=== PATIENT | male | born 1970 | race Caucasian/White ===

== ENCOUNTER → 2018-04-09 | Outpatient (CLI) | payer BC ==
[2018-04-09 13:04] LABS: Basophils # (A) 0.1 k/uL (0-0.2); Basophils % (A) 1 %; Eosinophils # (A) 0.3 k/uL (0-0.7); Eosinophils % (A) 3 %; HCT 47.1 % (39.0-53.0); HGB 15.4 gm/dL (13.0-17.5); Lymphocytes # (A) 2.5 k/uL (1.0-4.8); Lymphocytes % (A) 29 %; MCH 31.4 pg (25.0-35.0); MCHC 32.8 g/dL (31.0-37.0); Mean Platelet Volume 7.8; Monocytes # (A) 0.7 k/uL (0-1.0); Monocytes % (A) 8 %; Neutrophils % (A) 57 %; Platelet Count 346 k/uL (150-450); RBC 4.91 m/uL (4.30-5.90); RDW 13.4 % (11.5-15.5); WBC 8.8 k/uL (3.8-10.6)
== END | disposition home or self-care (01) ==
LOC: LABPAT 11:47
PROVIDERS: ATTEND Orthopaedic Surgery
DX: Z01.812 Encounter for preprocedural laboratory examination (principal); M23.92 Unspecified internal derangement of left knee
CPT/HCPCS: 36415; 82947; 85025

== ENCOUNTER → 2018-04-17 | Day surgery (SDC) | payer BC ==
[2018-04-14 12:12] VITALS: BMI 39.0
--- NOTE | 2018-04-16 20:04 | HP ---
HISTORY AND PHYSICAL DATE OF SURGERY: 04/17/2018 Yogi Ritter is a 47-year-old patient seen with progressive left knee pain. Treatment options were discussed with him. He elected to proceed with arthroscopy. Consent regarding the procedure was obtained. PAST MEDICAL HISTORY: Hypothyroidism, hypertension. PAST SURGICAL HISTORY: Noncontributory. MEDICATIONS: Levothyroxine, antihypertensive. ALLERGIES: PENICILLIN, ASPIRIN. SOCIAL HISTORY: Patient denies current tobacco use. PHYSICAL EVALUATION OF LEFT KNEE: Range of motion 0 to 130 degrees. He has a mild effusion. Tenderness along the medial joint line. Positive medial Annalee's. Ligaments stable. Patellar medial crepitus with range of motion. Hip rotation without pain. Distal neurovascular exam intact. LEFT KNEE RADIOGRAPHS: Left knee radiographs revealed mild medial, lateral and moderate patellofemoral compartment osteoarthritis. Left knee MRI revealed chondromalacia. IMPRESSION: Internal derangement of the left knee with meniscal tear versus osteochondral tear. PLAN: Left knee arthroscopy with partial meniscectomy versus chondroplasty and debridement. MMODL / IJN: [id number] /
[~2018-04-17] MED LIST: BUPIVACAIN-EPI 0.25%-1:200,000 30 ML VIAL SQ ONE; CLINDAMYCIN 900 MG in DEXTROSE 5% IN WATER 50 ML IVPB ONE; DEXAMETHASONE SOD PHOSPHATE 10 MG/ML 1 ML VIAL IV ONE; LACTATED RINGERS 1,000 ML IV ONE; LACTATED RINGERS 1,000 ML IV SCH; LIDOCAINE 1% 20 ML VIAL (10MG/ML) FOR IV START INTRADERMA ONE; MIDAZOLAM 2 MG/2 ML VIAL IV PRN; MIDAZOLAM 2 MG/2 ML VIAL ONE; ONDANSETRON 4 MG/2 ML VIAL IVP ONE; PROPOFOL 10 MG/ML 20 ML VIAL IV ONE; Pre Op ABX Message 1 EACH MISC MISCELLANE ONE; SCOPOLAMINE 1.5MG/72HR PATCH TRANSDERM ONE; fentaNYL (PF) 50 MCG/ML 2 ML AMP IV PRN; fentaNYL (PF) 50 MCG/ML 2 ML AMP ONE
[2018-04-17 09:34] VITALS: TEMP 97.3
--- NOTE | 2018-04-17 09:42 | P.OP ---
Date of Procedure: 04/17/18 Preoperative Diagnosis: Internal derangement left knee Postoperative Diagnosis: 1. Tear medial and lateral meniscus left knee 2. Grade 2/3 chondromalacia medial femoral condyle left knee 3. Reactive synovitis medial and suprapatellar compartments left knee Procedure(s) Performed: 1. Arthroscopic partial medial and lateral meniscectomy left knee 2. Arthroscopic chondroplasty medial femoral condyle left knee 3. Arthroscopic partial synovectomy medial and suprapatellar compartments left knee Anesthesia: local, spinal Surgeon: River Lopez Estimated Blood Loss (ml): 5 Pathology: none sent Condition: stable Disposition: PACU Indications for Procedure: 47-year-old patient seen with progressive left knee pain. After having treatment options discussed he elected to proceed with arthroscopy. Operative Findings: See description of procedure Description of Procedure: Patient was taken to the operative suite. Patient underwent a spinal anesthetic by the department of anesthesia. Patient was given preoperative antibiotics. The left lower extremity was placed in a well-padded arthroscopic leg del angel. The left leg was prepped and draped in the normal sterile orthopedic fashion. A lateral parapatellar and suprapatellar incision was made. Trochars were inserted. Arthroscopy was initiated. Suprapatellar pouch revealed diffuse thick reactive synovitis. The patellofemoral joint appeared appeared to articulate congruently. There was grade 1 chondromalacia. The scope was guided into the medial gutter. No loose bodies or plica were identified. The scope was then guided into the medial compartment. A medial parapatellar incision was made. Trocar inserted followed by probe. Was a radial tear posterior horn medial meniscus. There were grade 2/3 chondromalacia changes medial femoral condyle with small osteochondral tears present. There was thick reactive synovitis anteriorly. I performed a partial medial meniscectomy down to stable tissue. I performed a chondroplasty of the medial femoral condyle down to stable tissue. I performed a partial synovectomy decompressing that synovitis anteriorly. The residual meniscus was stable. The residual osteochondral surface was stable. There was good decompression of the synovitis. Scope and probe were then guided into the intercondylar notch. Cruciates were identified, probed and found to be stable. The scope and probe were then guided into lateral compartment. There was a small radial tear involving the anterior horn lateral meniscus. There was no reactive synovitis present. The osteochondral surfaces were stable. I performed a partial lateral meniscectomy down to stable tissue. The residual meniscus was stable. The scope was in guided back into the suprapatellar compartment. I introduced a motorized shaver into the suprapatellar compartment. I performed a partial synovectomy decompressing the reactive synovitis. There was good decompression of the synovitis. I took one more look on the entire knee, no residual debris. Instruments were now removed from the joint. The joint was infiltrated with .25% Marcaine. Steri-Strips were applied to the portal sites. Sterile dressings were applied. The patient was placed into a MATIAS hose. No tourniquet was utilized. The patient was awakened, transferred to a bed and taken to recovery stable satisfactory condition.
[2018-04-17 12:19] VITALS: BP 166/96; PULSE 93; RESP 20
== END | disposition home or self-care (01) ==
LOC: OR 06:55
PROVIDERS: ATTEND Orthopaedic Surgery
DX: S83.242A Other tear of medial meniscus, current injury, left knee, initial encounter (principal); S83.282A Other tear of lateral meniscus, current injury, left knee, initial encounter; X58.XXXA Exposure to other specified factors, initial encounter; M94.262 Chondromalacia, left knee; M65.862 Other synovitis and tenosynovitis, left lower leg; E03.9 Hypothyroidism, unspecified; I10 Essential (primary) hypertension; Z79.890 Hormone replacement therapy; Z79.899 Other long term (current) drug therapy; Z88.6 Allergy status to analgesic agent; Z88.0 Allergy status to penicillin
CPT/HCPCS: 29880; J2250; J1100; J2405; J3010; J2704

== ENCOUNTER → 2022-07-20 | Outpatient (CLI) | payer BC ==
[2022-07-20 23:07] LABS: Basophils # (A) 0.14 X 10*3/uL (0.00-0.10); Basophils % (A) 1.5 %; Eosinophils # (A) 0.24 X 10*3/uL (0.04-0.35); Eosinophils % (A) 2.6 %; HCT 39.4 % (39.6-50.0); HGB 11.7 g/dL (13.0-17.0); Immature Grans, Automated 0.3 %; Lymphocytes # (A) 1.96 X 10*3/uL (0.90-5.00); Lymphocytes % (A) 21.1 %; MCH 25.3 pg (27.0-32.0); MCHC 29.7 g/dL (32.0-37.0); MCV 85.1 fL (80.0-97.0); Mean Platelet Volume 10.6 fL (9.5-12.2); Monocytes # (A) 1.18 X 10*3/uL (0.20-1.00); Monocytes % (A) 12.7 %; NRBC Per 100 WBC 0 /100 WBCS (0.0-0.0); Neutrophils # (A) 5.75 X 10*3/uL (1.80-7.70); Neutrophils % (A) 61.8 %; Platelet Count 343 X 10*3/uL (140-440); RBC 4.63 X 10*6/uL (4.40-5.60); RDW 17.2 % (11.5-14.5)
[2022-07-21 02:57] LABS: Anion Gap 14.2 mmol/L (10.00-18.00); Carbon Dioxide 24.8 mmol/L (20.0-27.5); Potassium 4.4 mmol/L (3.5-5.5)
== END | disposition home or self-care (01) ==
LOC: LABPAT 15:41
PROVIDERS: ATTEND Orthopaedic Surgery Hand Surgery
DX: Z01.818 Encounter for other preprocedural examination (principal); G56.22 Lesion of ulnar nerve, left upper limb
CPT/HCPCS: 80051; 85025; 93005

== ENCOUNTER 2022-08-08 07:12 | Day surgery (SDC) | payer BC ==
[2022-08-03 09:11] VITALS: BMI 38.4
--- NOTE | 2022-08-07 08:56 | P.HPOR ---
History of Present Illness H&P Date: 08/07/22 Chief Complaint: Left cubital tunnel syndrome Subjective: This is a 52 year old male that presents today for initial evaluation regarding a several year history of worsening elbow pain and left small and ring finger paresthesias and hand weakness. He denies any injury or inciting event. He has pain also located over the lateral aspect of the elbow and pain with resisted wrist extension. He has tried therapy, numerous elbow braces and wrist braces with little relief. He has a history of right open cubital tunnel release several years ago but an outside orthopedic surgeon which improved his symptoms he states by approximately 70%. Physical Examination: LUE: AIN/PIN/Radial/Ulnar/Median motor intact. Radial/Ulnar/Median SILT. 2+/4 Radial/Ulnar pulses palpated. 5/5 APB, 5/5 FDI. Negative Finkelsteins, negative CMC grind, negative Durkan's compression. TTP over ERCB insertion with resisted wrist extension. Small and ring finger paresthesias reproduced after 15 seconds of elbow flexion. Imaging: X-Rays of the left elbow from 05/29/22 demonstrate no acute abnormality. Impression: 1.) Left cubital tunnel syndrome 2.) Left lateral epicondylitis Plan: Diagnosis and treatment options were discussed with the patient. He has failed conservative treatment for his left cubital tunnel symptoms and would like to proceed with left open cubital tunnel release. Risks and benefits of surgery including bleeding, infection, damage to surrounding tissue, need for further surgery, residual numbness were discussed and the patient wished to go forward with surgery. I recommend elbow bracing and possible steroid injection for his lateral epicondylitis after he is healed from cubital tunnel release if his symptoms persist. The patient was agreeable with this plan. Follow up: 2 weeks post op -Bebo Quach DO Orthopedic Hand/Upper Extremity Surgeon Past Medical History Past Medical History: Diabetes Mellitus, Hypertension, Sleep Apnea/CPAP/BIPAP, Thyroid Disorder Additional Past Medical History / Comment(s): c-pap machine., lichen planus auto immune disorder-( states rash on arms & back). History of Any Multi-Drug Resistant Organisms: None Reported Past Surgical History: Orthopedic Surgery Additional Past Surgical History / Comment(s): left knee arthroscopy, sinus surgery, left shoulder surgery x2 and right shoulder x1., ganglion cyst wrist , rickie heel slide surgery and hardware removed., right elbow cubital release. Additional Past Anesthesia/Blood Transfusion Reaction / Comment(s): sinus surgery woke up when tube was removed and lungs collapsed and was hospitalized for 1 1/2 weeks . Past Psychological History: Anxiety, Depression Smoking Status: Never smoker Past Alcohol Use History: None Reported Past Drug Use History: None Reported - Past Family History Father Family Medical History: Cancer Additional Family Medical History / Comment(s): pts father and his fathers brothers x3 had prostate cancer. Sister(s) Additional Family Medical History / Comment(s): brain tumor Medications and Allergies Home Medications Medication Instructions Recorded Confirmed Type Cholecalciferol [Vitamin D3 (25 25 mcg PO DAILY 08/03/22 08/03/22 History Mcg = 1000 Iu)] Ferrous Sulfate [Iron] 325 mg PO DAILY 08/03/22 08/03/22 History Folic Acid 1 mg PO DAILY 08/03/22 08/03/22 History Levothyroxine Sodium 150 mcg PO DAILY 08/03/22 08/03/22 History Losartan Potassium [Cozaar] 25 mg PO BID 08/03/22 08/03/22 History Vitamin B Injection 1 dose SQ QMONTHLY 08/03/22 History buPROPion HCL [buPROPion HCL XL] 300 mg PO DAILY 08/03/22 08/03/22 History metFORMIN HCL [Glucophage] 500 mg PO BID 08/03/22 08/03/22 History metHOTREXate sodium [Methotrexate] 2.5 mg PO WEEKLY 08/03/22 08/03/22 History Allergies Allergy/AdvReac Type Severity Reaction Status Date / Time NSAIDS (Non-Steroidal Allergy Severe Anaphylaxis Verified 08/03/22 08:42 Anti-Inflamma aspirin Allergy Anaphylaxis Verified 08/03/22 08:37 Penicillins Allergy Anaphylaxis Verified 08/03/22 08:37 Milk Containing Products AdvReac Diarrhea Verified 08/03/22 08:37 [Dairy] peanut AdvReac HEADACHE Verified 08/03/22 08:37 pineapple AdvReac HEADACHE Verified 08/03/22 08:37 wheat AdvReac HEADACHE Verified 08/03/22 08:37 Physical Examination Osteopathic Statement: *. No significant issues noted on an osteopathic structural exam other than those noted in the History and Physical/Consult.
[~2022-08-08 07:12] MED LIST changes: -BUPIVACAIN-EPI 0.25%-1:200,000 30 ML VIAL SQ ONE; -CLINDAMYCIN 900 MG in DEXTROSE 5% IN WATER 50 ML IVPB ONE; -DEXAMETHASONE SOD PHOSPHATE 10 MG/ML 1 ML VIAL IV ONE; +DEXAMETHASONE SOD PHOSPHATE 4 MG/ML 1 ML VIAL IV ONE; +HYDROmorphone 0.5 MG/0.5 ML SYRINGE IVP PRN; -LACTATED RINGERS 1,000 ML IV ONE; +LIDOCAINE 1% (10MG/ML) FOR IV START INTRADERMA PRN; -LIDOCAINE 1% 20 ML VIAL (10MG/ML) FOR IV START INTRADERMA ONE; -MIDAZOLAM 2 MG/2 ML VIAL IV PRN; -MIDAZOLAM 2 MG/2 ML VIAL ONE; -PROPOFOL 10 MG/ML 20 ML VIAL IV ONE; -SCOPOLAMINE 1.5MG/72HR PATCH TRANSDERM ONE; -fentaNYL (PF) 50 MCG/ML 2 ML AMP IV PRN; -fentaNYL (PF) 50 MCG/ML 2 ML AMP ONE
[2022-08-08 08:18] LABS: Glucose,Whole Blood 106 mg/dL (70-110)
[2022-08-08] MEDS ORDERED: fentaNYL (PF) 50 MCG/ML 2 ML AMP ONE (08:39)
[2022-08-08] MEDS ORDERED: MIDAZOLAM 2 MG/2 ML VIAL ONE (08:39)
[2022-08-08] MEDS ORDERED: PROPOFOL 10 MG/ML 20 ML VIAL IV ONE (08:39)
[2022-08-08] MEDS ORDERED: LIDOCAINE 4% LTA KIT (4 ML) TOPICAL ONE (08:39)
[2022-08-08] MEDS ORDERED: LIDOCAINE 2% INJ 20 MG/ML (2 ML VIAL) ONE (08:39)
[2022-08-08] MEDS ORDERED: SUCCINYLCHOLINE CHLORIDE 200 MG/10 ML VIAL IV ONE (08:39)
[2022-08-08] MEDS ORDERED: BUPIVACAINE (PF) 0.5% 30 ML VIAL SQ ONE ×2 (08:55)
[2022-08-08] MEDS ORDERED: LACTATED RINGERS 1,000 ML IV ONE (09:55)
[2022-08-08 10:19] VITALS: TEMP 98.3
[2022-08-08 10:34] VITALS: PULSE 98
[2022-08-08] MEDS ORDERED: HYDROcodone/APAP 7.5-325MG 1 EACH TAB ONE (10:37)
[2022-08-08] MEDS ORDERED: HYDROcodone/APAP 7.5-325MG 1 EACH TAB PO ONE (10:40)
[2022-08-08 11:14] VITALS: BP 138/78; RESP 158
--- NOTE | 2022-08-08 16:43 | P.OP ---
Date of Procedure: 08/08/22 Preoperative Diagnosis: Left cubital tunnel syndrome Postoperative Diagnosis: Left cubital tunnel syndrome Procedure(s) Performed: Left open cubital tunnel release with anterior subcutaneous transposition Anesthesia: GERARD Surgeon: Bebo Quach Principal Clerk Typist #1: Ronald Lindquist Estimated Blood Loss (ml): 5 Pathology: none sent Condition: stable Disposition: PACU Description of Procedure: This is a 52 year old male who presented today for a left open cubital tunnel release after having failed conservative treatment. Risks and benefits of surgery were discussed with the patient including bleeding, damage to surrounding tissue, infection, need for further surgery as well as risks of anesthesia including pulmonary embolism and even and the patient wished to proceed with surgical intervention. The patient was seen in the pre-operative area by myself. Consent and H&P were completed and updated. The correct extremity was marked in the pre-operative area by myself and all other questions were answered. Operative Narrative: The patient was brought to the operating room by the department of anesthesia. They remained on the portable stretcher and a rolling hand table was brought to the side of the operative extremity. Pre-operative time out was performed indicating the correct patient, procedure and laterality. All in the room agreed. Pre-operative antibiotics were given prior to skin incision. The patient was then drifted off to sleep by the department of anesthesia. A nonsterile tourniquet was then applied to the operative extremity and the left upper extremity was then prepped and draped in normal sterile fashion. The operative extremity was the exsanguinated with an esmarch bandage and the tourniquet was inflated to 250mmHg. Attention was brought to the medial elbow. 15 blade scalpel was used to incise skin in between the medial epicondyle and olecranon in a curvlinear and longitudinal fashion. Blunt dissection was taken down through subcutaneous tissue with tenotomy scissors and branches of the MABCN were identified and protected. Dissection was carried proximally and the ulnar nerve was identified proximally and surrounding adhesions were released. Dissection was carried distally and mcbride's ligament was released at the medial epicondyle, the nerve appeared compressed at this location. Dissection was then carried out further distal and the superficial and deep fascia of the two heads of the FCU were released and the ulnar nerve was decompressed with Halle and tenotomy scissors and appeared to be tension free. The elbow was the flexed and extended and the ulnar nerve appeared to be very unstable and was consistently jumping anteriorly over the medial epicondyle, therefore decision was made to perform anterior transposition. Patient has transposition on his contralateral side as well from an outside surgeon for cubital tunnel syndrome. A strip of the medial intermuscular septic was removed in order to prevent any anterior impingement on the transpositioned nerve. The nerve was freed from surrounding connective tissue while preserving the distal branches to the FCU. The nerve was then moved anterior to medial epicondyle and a flap of subcutaneous tissue was created with blunt dissection and then placed and sutured over the nerve in a tension free matter taking care not to cause excess compression of the nerve in it's newly transposed position. The arm was then flexed and extended and the nerve was found to be stable and tension free. 0.5% bupivacaine was injected into the subcutaneous tissues. Skin closure was performed with interrupted 3-0 Monocryl sutures followed by running 4-0 monocryl sutures tourniquet was then let down and the hand had immediate perfusion. Large bulky dressing was applied with mastisol and steri strips over the incision, 4x4s, cast padding and an ann wrap. The patient was then woken by the department of anesthesia and transferred to PACU in stable condition. Ronald PALMA was present to assist in major portions of the case including protection of vital neurovascular structures and retraction. Bebo Quach D.O. Orthopedic Hand/Upper Extremity Surgeon
== END 2022-08-08 11:44 | disposition home or self-care (01) ==
LOC: OR 07:12
PROVIDERS: ATTEND Orthopaedic Surgery Hand Surgery
DX: G56.22 Lesion of ulnar nerve, left upper limb (principal); M77.12 Lateral epicondylitis, left elbow; E11.9 Type 2 diabetes mellitus without complications; I10 Essential (primary) hypertension; G47.30 Sleep apnea, unspecified; E07.9 Disorder of thyroid, unspecified; F32.A Depression, unspecified; F41.9 Anxiety disorder, unspecified; Z79.84 Long term (current) use of oral hypoglycemic drugs; Z88.0 Allergy status to penicillin; Z88.6 Allergy status to analgesic agent; Z79.890 Hormone replacement therapy; Z79.899 Other long term (current) drug therapy; Z91.011 Allergy to milk products; Z91.010 Allergy to peanuts; Z91.018 Allergy to other foods
CPT/HCPCS: 64718; J2250; J0330; J1100; J2405; J3010; J2704; J2001

== ENCOUNTER → 2023-01-31 | Outpatient (CLI) | payer BC ==
[2023-01-31 14:59] VITALS: BP 150/93; PULSE 93; RESP 18; TEMP 98.4
--- NOTE | 2023-01-31 15:28 | P.PAINPG ---
PQRS Measure Charge Sheet Comment: HISTORY OF PRESENT ILLNESS: 52 yr old male as a referral from [facility] presents today w severe and chronic LBP secondary to DDD, spondylosis and facet arthropathy without myelopathy for evaluation. Pt states pain level is provoked at 7/10 in intensity, constant, localized in the lower lumbar spine, achy in character w shooting pain up towards the spine and the hips. Pain is provoked by walking. Pain is alleviated by PT x 3-4 wks in December 2022, physician guided home exercises almost daily x 2mo, manual massage, repositioning and rest. Oswetry Pain Score of 17. PMH: OA, DM II, HTN, IDALIA, Hypothyroidism, MDD/ Anxiety PSH: L Cubital Tunnel Release (2022), L Knee Arthroscopy, Sinus Surgery, L Shou lder Surgery x2, R Shoulder Surgery, Ganglion Cystectomy, BL Calcaneal Hardware Removed & Spur Surgery, R Elbow Cubital Release SH: Negative x3 FH: Fa- Prostate CA. Paternal Uncles (3)- Prostate CA. Sis- Brain Tumor. All: See list Meds: See list REVIEW OF ORGAN SYSTEMS: CONSTITUTIONAL: No fevers or chills. No recent weight loss. NEUROLOGICAL: + numbness and tingling along the distal extremities. No seizure disorders or headaches. MUSCULOSKELETAL: + pain PSYCHIATRIC: Denies current depression or suicidal th oughts. Physical Examinations : Constitutional : Cooperative , not in acute distress . Neurologic : Cranial nerve II to XII intact. No focal neurological deficits. Psychiatric : alert & oriented x 3. Matching mood & appropriate affect. Judgment & insight intact. Musculoskeletal : Cervical Spine Motor strength in the deltoid and biceps: Normal right side. Normal Left side Motor strength biceps and the wrist extensors: Normal right side . Normal left side Motor strength in the triceps muscle: Normal right side. Normal left side Deep tendon reflexes: Normal at the biceps. Normal at Brachioradialis. Normal at triceps Vertebral body tenderness to deep palpation over Cervical facet loading test: positive bilaterally Spurling test: positive bilaterally Neck distraction test: positive bilaterally Patrice sign: positive bilaterally Lumbar spine Motor strength lower extremities ,thigh and legs 5/5 Right side , 5/5 Left side Deep tendon reflexes : Normal Knee Jerk. Normal Ankle Jerk Vertebral body tenderness over L5 Huynh Test positive Lumbar facet Loading Test: positive Right / positive Left Range of motion of the lumbar spine Flexion 30 degrees, extension 10 degrees Straight Leg Raise test: Left/ Right positive at 35 degrees Charles test: positive right / positive left. Severe tenderness over the Sacroiliac joint on the Right / Left sides Gaenslen test: positive bilaterally Seated flexion test: positive bilaterally. Sacral spine : Severe tenderness over the Sacroiliac joint: right side / left side Range of motion: Flexion of the lumbar spine <60 degrees Range of motion: Extension of the lumbar spine <20 degrees Gaenslen's Test positive Walter's Test positive Charles test: positive right side / left side Thigh Thrust Test Sacral Thrust Test Imaging: MRI noncontrast of the lumbar spine from 12/17/22 reviewed Assessment/ Plan : Lumbar DDD Recommendation of BL TFESI L5-S1. Risks, benefits of procedure discussed and patient verbalized understanding. Admits to aspirin or anti- coagulant use or medical history of diabetes. Protocol for discontinuation/ continuation of medications madelyn procedure discussed. Minimal anesthesia provided, if clinically indicated, consisting of Versed and Fentanyl. All questions answered. I have spent greater than 30 minutes on patient care today. Dr Crowe was available by phone for the evaluation of this patient. The time was used to review the medical records including relevant urine studies and Prescription history (MAPs), review of the available imaging, evaluation and examination of the patient, coordination of care with the medical staff and if applicable referring physicians, as well as creation of the medical record Home Medications: Ambulatory Orders Cholecalciferol [Vitamin D3 (25 Mcg = 1000 Iu)] 25 mcg PO DAILY 08/03/22 Ferrous Sulfate [Iron] 325 mg PO DAILY 08/03/22 Folic Acid 1 mg PO DAILY 08/03/22 Levothyroxine Sodium 150 mcg PO DAILY 08/03/22 Losartan Potassium [Cozaar] 25 mg PO BID 08/03/22 Vitamin B Injection 1 dose SQ QMONTHLY 08/03/22 buPROPion HCL [buPROPion HCL XL] 300 mg PO DAILY 08/03/22 metFORMIN HCL [Glucophage] 500 mg PO BID 08/03/22 metHOTREXate sodium [Methotrexate] 2.5 mg PO WEEKLY 08/03/22 HYDROcodone/APAP 5-325MG [[place] 5-325] 1 tab PO Q6HR PRN 3 Days #24 tab 08/08/22 Controlled Substance Measures - Controlled Substance Measures Is patient prescribed a controlled substance at discharge?: No
== END ==
LOC: PNWHC3 12:49
PROVIDERS: ATTEND Specialist
DX: M51.36 Other intervertebral disc degeneration, lumbar region (principal); M47.816 Spondylosis without myelopathy or radiculopathy, lumbar region; G89.29 Other chronic pain; M19.90 Unspecified osteoarthritis, unspecified site; E11.9 Type 2 diabetes mellitus without complications; I10 Essential (primary) hypertension; G47.33 Obstructive sleep apnea (adult) (pediatric); E03.9 Hypothyroidism, unspecified; F32.9 Major depressive disorder, single episode, unspecified; F41.9 Anxiety disorder, unspecified; Z79.890 Hormone replacement therapy; Z79.84 Long term (current) use of oral hypoglycemic drugs; Z91.011 Allergy to milk products; Z91.018 Allergy to other foods; Z88.0 Allergy status to penicillin; Z88.1 Allergy status to other antibiotic agents; Z88.8 Allergy status to other drugs, medicaments and biological substances
CPT/HCPCS: 99211

== ENCOUNTER → 2023-05-08 | Outpatient (CLI) | payer BC ==
--- NOTE | 2023-05-08 17:56 | CT ---
EXAMINATION TYPE: CT thoracic spine wo con CT DLP: 1624 mGycm, Automated exposure control for dose reduction was used. DATE OF EXAM: 05/08/2023 4:18 PM COMPARISON: MRI lumbar spine 12/17/2022. . CLINICAL INDICATION:Male, 52 years old with history of ,M54.6 THORACIC SPINE; PHH, Chronic back pain TECHNIQUE: Axial images of the thoracic spine were obtained without contrast. Coronal and sagittal re formats were performed. FINDINGS: There is a compression deformity to the T11 vertebral body with 25% height loss. Superimpos ed superior endplate Schmorl's node there is present and not seen on prior MRI. Multilevel degenerati on changes throughout the spine with osteophyte formation and facet joint arthropathy. No evidence fo r significant spinal canal or neural foraminal stenosis. The alignment is within normal limits. IMPRESSION: 1. No spinal canal or neural foraminal stenosis is identified. 2. Redemonstration of compression fracture of the T11 vertebral body with 25% height loss. Mildly pr ogressed from prior MRI. No evidence for significant spinal canal or neural foraminal stenosis. This can be further evaluated with MRI for bony edema. This was present on prior MRI and may have progress ed since 12/17/2022. 3. Mild multilevel degeneration changes throughout the spine.
--- NOTE | 2023-05-09 08:39 | CT ---
EXAMINATION TYPE: CT lumbar spine wo con DATE OF EXAM: 05/08/2023 6:18 PM COMPARISON: X-ray 10/30/2022 HISTORY: Chronic back pain CT DLP: 959 mGycm Automated exposure control for dose reduction was used. Unenhanced CT of the lumbar spine was performed. Bone and soft tissue window settings are submitted as well as coronal and sagittal reconstructions. There is a superior endplate compression fracture of T11 with 25% loss of height. There is no evidence of spondylolisthesis. Disc spaces appear to be preserved. L1-L2: Normal disc space height. No disc herniation protrusion or central stenosis. No facet joint arthropathy. No evidence for foraminal encroachment. L2-L3: Normal disc space height. No disc herniation protrusion or central stenosis. No facet joint arthropathy. No evidence for foraminal encroachment. L3-L4: Mild circumferential disc bulging and there is vacuum phenomenon left facet joint. No definite canal stenosis. Mild bilateral foraminal encroachment. L4-L5: Circumferential disc bulging with bilateral facet arthropathy. There is no focal herniation. B orderline central stenosis with mild bilateral foraminal encroachment. L5-S1: Normal disc space height. No disc herniation protrusion or central stenosis. No facet joint arthropathy. No evidence for foraminal encroachment. A vacuum phenomenon involving the facets with facet arthropathy. There is mild bilateral foraminal en croachment. IMPRESSION: 1. Compression fracture superior endplate T11 with approximately 25% loss of height. 2. Multilevel disc bulging with facet arthropathy most marked at levels L3-S1 as discussed above.
== END | disposition home or self-care (01) ==
LOC: RADCTMAIN 15:50
PROVIDERS: ATTEND Orthopaedic Surgery
DX: S22.080A Wedge compression fracture of T11-T12 vertebra, initial encounter for closed fracture (principal); M47.814 Spondylosis without myelopathy or radiculopathy, thoracic region; G89.29 Other chronic pain
CPT/HCPCS: 72128; 72131

== ENCOUNTER → 2023-05-28 | Outpatient (CLI) | payer BC ==
--- NOTE | 2023-05-28 16:02 | MR ---
EXAMINATION TYPE: MR thoracic spine wo/w con DATE OF EXAM: 05/28/2023 2:51 PM CLINICAL INDICATION:Male, 52 years old with history of M54.6 PAIN IN THORACIC SPINE; PHH, Compression fx lower Tspine COMPARISON: No priors. TECHNIQUE: Multi planar, multi sequence imaging was performed utilizing: T1-weighted, short-tau inver kath recovery and T2-weighted of the thoracic spine. IV Contrast: 12.5 cc Gadavist (none if empty) FINDINGS: Alignment: Alignment is within normal limits. Vertebral bodies have preserved heights. Spinal cord: Spinal cord is within normal limits for signal. Discs: Intervertebral disc signal is maintained. No evidence of significant spinal canal or neural fo raminal stenosis. There is no evidence of extradural defects or central spinal canal narrowing at any thoracic vertebral body level Osseous structures: T11 vertebral body superior endplate deformity with superimposed Schmorl's node w ith curvilinear low T1/T2 signal. No abnormal or may be mild bony edema. IMPRESSION: 1. Remote appearing T11 superior endplate deformity with superimposed Schmorl's node and minimal bon y edema. 2. No evidence for acute fracture. 3. No evidence for significant spinal canal or neural foraminal stenosis. 4. No evidence for abnormal postcontrast enhancement.
== END | disposition home or self-care (01) ==
LOC: RADMRIMAIN 13:37
PROVIDERS: ATTEND Orthopaedic Surgery
DX: M54.6 Pain in thoracic spine (principal)
CPT/HCPCS: 72157; A9585

== ENCOUNTER → 2023-06-20 | Outpatient (CLI) | payer BC | END | disposition home or self-care (01) | LOC: LABWHC1 13:58 | PROVIDERS: ATTEND Family Medicine | DX: Z53.9 Procedure and treatment not carried out, unspecified reason (principal) ==

== ENCOUNTER → 2023-06-20 | Outpatient (CLI) | payer BC ==
[2023-06-20 15:15] LABS: Prothrombin Time 10.9 sec (10.0-12.5)
[2023-06-21 02:35] LABS: ALT 21 U/L (10-49); AST 21 U/L (14-35); Albumin/Globulin Ratio 1.29 Ratio (1.60-3.17); Alkaline Phosphatase 95 U/L (41-126); Basophils % (A) 1.7 %; Blood Urea Nitrogen 5.9 mg/dL (9.0-27.0); Calcium 9.8 mg/dL (8.7-10.3); Chloride 103 mmol/L (96-109); Chol/HDL Ratio 2.54 Ratio; Eosinophils # (A) 0.19 X 10*3/uL (0.04-0.35); Eosinophils % (A) 3.1 %; Globulin 3.1 g/dL (1.6-3.3); Glucose 213 mg/dL (70-110); HGB 13.5 g/dL (13.0-17.0); LDL Cholesterol,Calculated 58.5 mg/dL (0.0-131.0); Lymphocytes # (A) 1.71 X 10*3/uL (0.90-5.00); Lymphocytes % (A) 28.3 %; MCHC 32.1 g/dL (32.0-37.0); MCV 90.1 FL (80.0-97.0); Monocytes # (A) 0.96 X 10*3/uL (0.20-1.00); Monocytes % (A) 15.9 %; NRBC Per 100 WBC 0 X 10*3/uL (0.00-0.01); Neutrophils # (A) 3.08 X 10*3/uL (1.80-7.70); Neutrophils % (A) 50.8 %; Platelet Count 251 X 10*3/uL (140-440); Potassium 4.5 mmol/L (3.5-5.5); RBC 4.66 X 10*6/uL (4.40-5.60); Sodium 139 mmol/L (135-145); T4, Free (Free Thyroxine) 1.99 ng/dL (0.80-1.80); Total Bilirubin 0.4 mg/dL (0.3-1.2); Total Protein 7.1 g/dL (6.2-8.2); WBC 6.05 X 10*3/uL (4.50-10.00)
== END | disposition home or self-care (01) ==
LOC: LABWHC1 13:56
PROVIDERS: ATTEND Orthopaedic Surgery
DX: Z01.818 Encounter for other preprocedural examination (principal); S22.009A Unspecified fracture of unspecified thoracic vertebra, initial encounter for closed fracture; X58.XXXA Exposure to other specified factors, initial encounter; Z22.322 Carrier or suspected carrier of Methicillin resistant Staphylococcus aureus
CPT/HCPCS: 36415; 80053; 80061; 82306; 83036; 84439; 84443; 85025; 85610; 87070; 93005

== ENCOUNTER → 2023-07-15 | Outpatient (CLI) | payer BC ==
--- NOTE | 2023-07-15 21:13 | MR ---
EXAMINATION TYPE: MR cervical spine wo con DATE OF EXAM: 07/15/2023 7:57 PM CLINICAL INDICATION:Male, 53 years old with history of M54.2; PHH, Neck pain base of head, Bilat hand pain COMPARISON: Plain film cervical spine 07/12/2023. TECHNIQUE: Multi planar, multi sequence MR imaging of the cervical spine was performed without contra st per facility protocol. IV Contrast: cc (none if empty) FINDINGS: Craniocervical junction: The craniocervical junction appears intact. No cerebellar tonsillar ectopia. Cord and canal: Spinal cord appears normal in course caliber and signal. No evidence of intracanalicu lar fluid collection. Bones: Vertebral body heights and alignment appear within normal limits. No significant listhesis is seen. Marrow signal appears normal throughout, no evidence of focal T1 dark lesions or marrow edema. Discs/degenerative changes: C2-C3, no significant disc bulge or herniation. Spinal canal and neural foramina appear patent. C3-C4, there is mild broad-based circumferential disc bulging, with small more focal but also broad-b ased bulge near the midline which indents the anterior thecal sac, and similar intraforaminal bulge o n the left along with some osteophyte formation appears to cause mild neural foraminal stenosis. C4-C5, there is mild broad-based circumferential disc bulging, with small more focal but also broad-b ased bulge near the midline which indents the anterior thecal sac, and similar intraforaminal bulge o n the left along with some osteophyte formation appears to cause mild neural foraminal stenosis. C5-C6, there is somewhat larger broad-based posterior central disc bulge which extends about 4.5 mm p osteriorly into the canal, resulting in indentation on the anterior thecal sac and slight mass effect on the cord without signal abnormality seen. Small focus of increased signal along the inferior aspe ct of the bulging disc may be seen with annular tear. Neuroforamina appear patent. C6-C7, probably based posterior disc bulge results in indentation on the anterior thecal sac without significant mass effect on the cord or signal abnormality. Neural foramina appear patent. C7-T1, minimal posterior broad-based disc bulging with minimal indentation on the anterior thecal sac and no mass effect on the cord. Neural foramina appear patent. Other findings: None significant. IMPRESSION: 1. No acute MR abnormality of the cervical spine. No cord compression or intracanalicular fluid sara ection. 2. Multilevel degenerative disc disease with posterior disc bulges causing various degrees of anteri or indentation on the thecal sac, greatest at C5-C6 as described above.
== END | disposition home or self-care (01) ==
LOC: RADMRIMAIN 19:06
PROVIDERS: ATTEND Orthopaedic Surgery
DX: M50.31 Other cervical disc degeneration, high cervical region (principal); M99.71 Connective tissue and disc stenosis of intervertebral foramina of cervical region
CPT/HCPCS: 72141

== ENCOUNTER → 2023-11-27 | Outpatient (CLI) | payer BC ==
--- NOTE | 2023-12-03 14:16 | CT ---
EXAMINATION TYPE: CT brain wo con CT DLP: 1248 mGycm, Automated exposure control for dose reduction was used. DATE OF EXAM: 11/27/2023 1:20 PM COMPARISON: . CLINICAL INDICATION:Male, 53 years old with history of Z09 F/U EXAM AFTER NEURO SURGERY, f/u hematoma TECHNIQUE: Brain: Axial CT images of the brain were obtained with coronal and sagittal reformats created and rev iewed. Contrast used: None. Oral contrast used: None. FINDINGS: Brain: Extra-axial spaces: Persistent isodense right frontoparietal and left frontal subdural hematomas. Pne umocephalus in the left frontal subdural. Evidence of previous left parietal skull defect, likely pos tsurgical from beatriz hole. Numerous skin jason and scalp. Ventricular system: Within normal limits Cerebral parenchyma: No acute intraparenchymal hemorrhage or mass effect. The arvizu-white junction is well differentiated. Cerebellum: Unremarkable. Mass effect: No evidence of midline shift. Intracranial vasculature: unremarkable Soft tissues: Normal. Calvarium/osseous structures: No depressed skull fracture. Paranasal sinuses and mastoid air cells: Mild scattered paranasal sinus disease. Visualized orbits: Orbital contents are intact. IMPRESSION: Persistent isodense right frontoparietal and left frontal subdural hematomas. Pneumocephalus in the l eft frontal subdural. Evidence of previous left parietal skull defect, likely postsurgical from beatriz hole. Numerous skin jason and scalp. Right frontal thickest portion of the subdural hematomas 15 mm .
== END | disposition home or self-care (01) ==
LOC: RADCTMAIN 12:42
PROVIDERS: ATTEND Neurological Surgery
DX: Z09 Encounter for follow-up examination after completed treatment for conditions other than malignant neoplasm (principal); G93.89 Other specified disorders of brain
CPT/HCPCS: 70450